=== PATIENT | male | born 1950 | race Caucasian/White ===

== ENCOUNTER 2019-05-12 04:23 | Emergency (ER) | payer OTHER ==
[2019-05-12] MEDS ORDERED: MORPHINE SULFATE 4 MG/1ML SYG ONE (05:07)
[2019-05-12] MEDS ORDERED: SODIUM CHLORIDE 0.9% 1000ML 1,000 ML IV ONE (05:07)
[2019-05-12 05:30] LABS: APPEARANCE,URINE Clear (CLEAR); BASOPHILS % (AUTO) 0.5 % (0.0-5.0); BILIRUBIN,URINE Negative (NEGATIVE); COLOR,URINE Yellow (YELLOW); EOSINOPHILS % (AUTO) 3.3 % (0.0-8.0); GLUCOSE, URINE (UA) Negative (NEGATIVE); HEMATOCRIT 44.8 % (42-54); KETONES,URINE 15 mg/dL (NEGATIVE); LEUKOCYTE ESTERASE ,URINE Negative (NEGATIVE); LYMPHOCYTES % (AUTO) 26.5 % (21.0-51.0); MEAN CORPUSCULAR HGB CONC 34.4 g/dL (32.0-36.0); MEAN CORPUSCULAR VOLUME 95.9 fL (79-99); MONOCYTES % (AUTO) 9.6 % (3.0-13.0); NEUTROPHILS % (AUTO) 60.1 % (40.0-77.0); NITRATE,URINE Negative (NEGATIVE); OCCULT BLOOD,URINE Negative (NEGATIVE); PLATELET COUNT (AUTO) 184 K/uL (130-400); PROTEIN,URINE POS 1+ mg/dL (NEGATIVE); RED BLOOD CELL COUNT(AUTO) 4.68 MIL/uL (4.50-6.20); RED CELL DISTRIBUTION WIDTH 12.7 % (11.0-15.5); WHITE BLOOD COUNT (AUTO) 7.1 K/uL (4.8-10.8)
[2019-05-12 05:37] LABS: CREATININE 0.9 mg/dL (0.5-1.5); POTASSIUM 4.5 mmol/L (3.5-5.1)
[2019-05-12 05:42] LABS: ALBUMIN 4.5 g/dL (3.5-5.0); BILIRUBIN,TOTAL 0.7 mg/dL (0.2-1.0); TOTAL PROTEIN, SERUM 7.1 g/dL (6.0-8.3)
[2019-05-12 05:44] LABS: INR 1.41 (0.85-1.15); PARTIAL THROMBOPLASTIN TIME 33.6 SEC (26.3-35.5); PROTHROMBIN TIME 14.7 SEC (9.6-11.6)
[2019-05-12 05:54] LABS: BACTERIA,URINE None Seen /HPF (None Seen); RBC,URINE None Seen /HPF (0-1); SQUAMOUS EPITHELIAL CELL,UR Rare /HPF (0-2); WBC,URINE None Seen /HPF (0-1)
[2019-05-12] MEDS ORDERED: IOHEXOL 350 MG/ML 100ML INFUS..BTL IV ONE (05:57)
== END 2019-05-12 07:06 | disposition home or self-care (01) ==
LOC: EDH 04:23
DX: S22.41XA Multiple fractures of ribs, right side, initial encounter for closed fracture (principal); E11.9 Type 2 diabetes mellitus without complications; I10 Essential (primary) hypertension; F43.10 Post-traumatic stress disorder, unspecified; Z88.0 Allergy status to penicillin; Z87.891 Personal history of nicotine dependence; W01.198A Fall on same level from slipping, tripping and stumbling with subsequent striking against other object, initial encounter; Y93.E1 Activity, personal bathing and showering; Y92.098 Other place in other non-institutional residence as the place of occurrence of the external cause; Y99.8 Other external cause status
CPT/HCPCS: 36415; 71260; 74177; 80053; 81001; 82550; 85025; 85610; 85730; 96374; 99285; J2270; J7030; Q9967

== ENCOUNTER 2019-11-02 13:36 | Emergency (ER) | payer OTHER ==
[2019-11-02] MEDS ORDERED: TETANUS/DIPHTHERIA TOXOID [ADULT] 0.5 ML VIAL IM ONE (14:54)
== END 2019-11-02 16:07 | disposition home or self-care (01) ==
LOC: EDH 13:36
DX: S81.812A Laceration without foreign body, left lower leg, initial encounter (principal); E11.9 Type 2 diabetes mellitus without complications; I10 Essential (primary) hypertension; F43.10 Post-traumatic stress disorder, unspecified; Z98.890 Other specified postprocedural states; Z87.891 Personal history of nicotine dependence; W18.39XA Other fall on same level, initial encounter; Y93.89 Activity, other specified; Y92.89 Other specified places as the place of occurrence of the external cause; Y99.8 Other external cause status; Z88.0 Allergy status to penicillin
CPT/HCPCS: 90471; 90714

== ENCOUNTER 2021-08-07 00:17 | Emergency (ER) | payer OTHER ==
[~2021-08-07] VITALS: Ht 182.9 cm; Wt 95.3 kg
[2021-08-07 02:08] VITALS: BP 153/81
== END 2021-08-07 02:19 | disposition home or self-care (01) ==
LOC: EDH 00:17
DX: S93.402A Sprain of unspecified ligament of left ankle, initial encounter (principal); I10 Essential (primary) hypertension; G20 Parkinson's disease; E11.9 Type 2 diabetes mellitus without complications; Z88.0 Allergy status to penicillin; X50.1XXA Overexertion from prolonged static or awkward postures, initial encounter; Y93.89 Activity, other specified; Y92.89 Other specified places as the place of occurrence of the external cause; Y99.8 Other external cause status
CPT/HCPCS: 29515; 73610; 73630

== ENCOUNTER → 2023-08-10 | Outpatient (CLI) | payer OTHER | END | disposition home or self-care (01) | LOC: RAH 13:13 | PROVIDERS: ATTEND Internal Medicine Cardiovascular Disease | DX: I08.0 Rheumatic disorders of both mitral and aortic valves (principal); Z95.2 Presence of prosthetic heart valve | CPT/HCPCS: 93306 ==

== ENCOUNTER → 2023-11-04 | Outpatient (CLI) | payer OTHER ==
[~2023-11-04] MED LIST: REGADENOSON 0.4 MG/5 ML PF SYG IVP SCH
== END | disposition home or self-care (01) ==
LOC: RAH 08:54
PROVIDERS: ATTEND Family Medicine
DX: R07.9 Chest pain, unspecified (principal)
CPT/HCPCS: 78452; 96374; 93017; J2785; A9500 ×2

== ENCOUNTER 2025-01-18 15:35 | Emergency (ER) | payer OTHER, MEDICARE ==
[~2025-01-18] VITALS: Ht 182.9 cm; Wt 95.3 kg
[2025-01-18 16:08] LABS: BASOPHILS # (AUTO) 0.04 K/uL (0.00-0.20); BASOPHILS % (AUTO) 0.4 % (0.0-5.0); EOSINOPHILS # (AUTO) 0.17 K/uL (0.00-0.70); EOSINOPHILS % (AUTO) 1.8 % (0.0-8.0); HEMATOCRIT 38.1 % (42-54); IMMATURE GRANULOCYTE ABSOLUTE 0.03 K/uL (0-1); LYMPHOCYTES # (AUTO) 2.7 K/uL (1.0-4.8); LYMPHOCYTES % (AUTO) 28.6 % (21.0-51.0); MEAN CORPUSCULAR HEMOGLOBIN 32.4 pg (27.0-33.0); MEAN CORPUSCULAR HGB CONC 33.9 g/dL (32.0-36.0); MEAN CORPUSCULAR VOLUME 95.7 fL (79-99); MONOCYTES # (AUTO) 0.7 K/uL (0.1-1.0); MONOCYTES % (AUTO) 7.7 % (3.0-13.0); NEUTROPHILS # (AUTO) 5.7 K/uL (1.8-7.7); NEUTROPHILS % (AUTO) 61.2 % (40.0-77.0); PLATELET COUNT (AUTO) 251 K/uL (130-400); RED BLOOD CELL COUNT(AUTO) 3.98 MIL/uL (4.50-6.20); RED CELL DISTRIBUTION WIDTH 13.1 % (11.0-15.5); WHITE BLOOD COUNT (AUTO) 9.3 K/uL (4.8-10.8)
[2025-01-18 16:13] LABS: CREATININE 1.9 mg/dL (0.5-1.3); POTASSIUM 4.8 mmol/L (3.5-5.1)
[2025-01-18 16:19] LABS: PARTIAL THROMBOPLASTIN TIME 60.3 SEC (26.3-35.5)
[2025-01-18 16:22] LABS: PROTHROMBIN TIME > 90.0 SEC (9.6-11.6)
[2025-01-18 16:23] LABS: INR > 8.00 (0.85-1.15)
[2025-01-18 16:35] VITALS: BP 105/53; PULSE 63; RESP 17; TEMP 98.2; O2SAT 96
--- NOTE | 2025-01-18 16:40 | ERN ---
General Chief Complaint: Abnormal Labs Stated Complaint: SENT BY DR COLBY FOR HIGH INR Time Seen by MD: 15:36 Time Seen by Midlevel: 15:36 Source: patient History of Present Illness Initial Comments 74-year-old [facility] results. Per Dr. Colby patient's INR obtained this morning was 10.3. Patient has not been having any active bleeding. Patient has an artificial heart valve and is therefore on warfarin. PMHx HTN, GERD, DM, CAD. Patient is denying any chest pain, difficulty breathing, abdominal pain, dark stools or further associated symptoms. Allergies: Coded Allergies: Penicillins (Unverified Allergy, Unknown, 05/12/19) Past Medical History Past Medical History: CAD, Diabetes-Type II, High Cholesterol, Heart Disease, Hypertension Medical History Other: PARKINSONS, Past Surgical History: Other Surgical History Other: HEART VALVE ROS Dictation Constitutional: Negative for fever,chills, and weight loss Eyes: Negative for injury, pain,redness, and discharge ENT: Negative for injury,pain or swelling Cardiovascular: Negative for chest pain, palpitations, and edema Respiratory: Negative for shortness of breath, cough, and wheezing, Abdomen/GI: Negative for abdominal pain, nausea, vomiting, diarrhea, and constipation Back: Negative for injury and pain : Negative for painful urination, bleeding or discharge MS/Extremity: Negative for injury and deformity Skin: Negative for rash, and discoloration Neuro: Negative for headache, weakness, numbness, tingling, and seizure Psych: Negative for suicide ideation, homicidal ideation, and hallucinations Physical Exam Physical Exam Dictation General: awake, alert, no acute distress Head/Face: Normocephalic, atraumatic Eyes: PERRL, EOMI, normal conjunctiva ENT: oral cavity clear, oral mucosa moist Neck: Supple, normal range of motion Cardiovascular: RRR, normal S1/S2 Respiratory: CTAB, no respiratory distress, no rales or wheezes Abdomen: Soft, non-tender, non-distended, no guarding or rebound. Skin: Warm, dry, normal turgor, no rash MS/Extremity: Pulses equal, no cyanosis, neurovascular intact, FROM Neuro: COAx4, GCS 15, strength 5/5, CN 2-12 intact, normal cerebellar exam, normal gait Psych: Normal behavior, mood, and affect normal Results Laboratory and Microbiology Lab and Micro Result Laboratory Tests Test 01/18/25 15:49 White Blood Count 9.3 K/uL (4.8-10.8) Red Blood Count 3.98 MIL/uL (4.50-6.20) L Hemoglobin 12.9 g/dL (14.0-18.0) L Hematocrit 38.1 % (42-54) L Mean Corpuscular Volume 95.7 fL (79-99) Mean Corpuscular Hemoglobin 32.4 pg (27.0-33.0) Mean Corpuscular Hemoglobin Concent 33.9 g/dL (32.0-36.0) Red Cell Distribution Width 13.1 % (11.0-15.5) Platelet Count 251 K/uL (130-400) Mean Platelet Volume 11.1 fL (7.5-10.5) H Immature Granulocyte % (Auto) 0.3 % (0-1) Neutrophils (%) (Auto) 61.2 % (40.0-77.0) Lymphocytes (%) (Auto) 28.6 % (21.0-51.0) Monocytes (%) (Auto) 7.7 % (3.0-13.0) Eosinophils (%) (Auto) 1.8 % (0.0-8.0) Basophils (%) (Auto) 0.4 % (0.0-5.0) Neutrophils # (Auto) 5.7 K/uL (1.8-7.7) Lymphocytes # (Auto) 2.7 K/uL (1.0-4.8) Monocytes # (Auto) 0.7 K/uL (0.1-1.0) Eosinophils # (Auto) 0.17 K/uL (0.00-0.70) Basophils # (Auto) 0.04 K/uL (0.00-0.20) Absolute Immature Granulocyte (auto 0.03 K/uL (0-1) Nucleated Red Blood Cells 0.0 % (0.0-0.19) Prothrombin Time > 90.0 SEC (9.6-11.6) *H Prothromb Time International Ratio > 8.00 (0.85-1.15) *H Activated Partial Thromboplast Time 60.3 SEC (26.3-35.5) H Sodium Level 141 mmol/L (136-145) Potassium Level 4.8 mmol/L (3.5-5.1) Chloride Level 105 mmol/L (101-111) Carbon Dioxide Level 27 mmol/L (21-32) Blood Urea Nitrogen 28 mg/dL (7-18) H Creatinine 1.9 mg/dL (0.5-1.3) H Glomerular Filtration Rate Calc 36 mL/min (>90) Random Glucose 163 mg/dL (70-105) H Total Calcium 10.0 mg/dL (8.5-10.1) Labs Reviewed?: Yes MDM MDM: Differential diagnosis: Abnormal lab results, electrolyte imbalance, anemia Rationale: 74-year-old male referred to the ED from the [facility] due to abnormal lab results. Per Dr. Colby patient's INR obtained this morning was 10.3. Patient has not been having any active bleeding. Patient has an artificial heart valve and is therefore on warfarin. PMHx HTN, GERD, DM, CAD, CKD. Patient is denying any chest pain, difficulty breathing, abdominal pain, dark stools or further associated symptoms. Per physical examination patient is in no acute distress, abdomen is soft nontender, nonlabored breathing. Labs obtained indicate elevated PT and INR 8.0. Spoke to Dr. Colby [facility] physician, who requested labs recheck. Case discussed with attending ED physician Dr. Holguin, who recommended patient discontinue warfarin for three days, and follow up outpatient for INR recheck. Patient and were educated on findings, and diagnosis. Admission was discussed with patient, patient agrees with outpatient for outpatient follow up. Return to the emergency department if any symptoms initiate. Patient and verbalized understanding. Patient stable for discharge. There are no social concerns with this patient. I independently interpreted the test that were performed, results were reviewed by me and considered findings on radiology if ordered. Medical management and examination interpretation discussions were had by me with other qualified healthcare professionals as indicated for the patient's care. ED Course Orders Procedure Category Date Status Time Cbc With Differential LAB 01/18/25 Complete 15:36 Basic Metabolic Panel LAB 01/18/25 Complete 15:36 Pt And Ptt LAB 01/18/25 Complete 15:36 Vital Signs Date Time Temp Pulse Resp B/P (MAP) Pulse Ox O2 Delivery O2 Flow Rate FiO2 01/18/25 16:35 98.2 63 17 105/53 96 Room Air* 0 21 01/18/25 15:36 98.6 69 20 129/64 97 Room Air 0 DX & DISP Disposition: Discharge Departure Impression: Primary Impression: Elevated INR Additional Impression: Mild anemia Condition: Stable Additional Instructions: Discharge home. Rest. Follow up with primary care DrHannah in 24 hours. Return to the ER for any acute changes or worsening symptoms. If any medications were prescribed take as directed. Okay to continue home medications unless otherwise discussed during your visit in the emergency room today. Patient was also advised to follow-up with primary care physician in 1 to 2 days for continued monitoring. Referrals: ROSS COLBY MD (PCP) I performed the substantive portion of the visit. I have reviewed and personally made and approve the management plan that is documented in the notes by myself or the [facility]. I acknowledge full responsibility for the patient's management plan. BEST TUCKER Jan 18, 2025 16:40
== END 2025-01-18 17:14 | disposition home or self-care (01) ==
LOC: EDH 15:35
DX: D64.9 Anemia, unspecified (principal); R79.1 Abnormal coagulation profile; E11.9 Type 2 diabetes mellitus without complications; E78.00 Pure hypercholesterolemia, unspecified; G20.A1 Parkinson's disease without dyskinesia, without mention of fluctuations; I11.9 Hypertensive heart disease without heart failure; I25.10 Atherosclerotic heart disease of native coronary artery without angina pectoris; Z79.01 Long term (current) use of anticoagulants; Z88.0 Allergy status to penicillin; Z95.2 Presence of prosthetic heart valve
CPT/HCPCS: 36415; 80048; 85025; 85610; 85730; 99283

== ENCOUNTER 2025-07-12 04:39 | Emergency (ER) | payer MEDICARE, OTHER ==
[~2025-07-12] VITALS: Ht 182.9 cm; Wt 99.8 kg
[2025-07-12 04:44] VITALS: TEMP 97.6
[2025-07-12 04:52] VITALS: BP 176/86; O2SAT 97
--- NOTE | 2025-07-12 04:52 | ERN ---
ED Note History of Present Illness Stated Complaint: SOB Chief Complaint: Shortness of Breath Time Seen by MD: 04:43 Dictation: This is a 74-year-old male who presented to the emergency room complaining of worsening shortness of breath. When he woke up from sleep last night. He sta grey that he has had sinus congestion for the past week or so draining with a severe postnasal drip and chest congestion and he could not breathe. Also reports sputum which is discolored. Was unable to clarify the color of the sputum. No history of any hemoptysis no recent travel no new pets at home. No other sick contacts. No nausea vomitings diarrhea hematemesis or melena. He also reports precordial chest pain all across the precordium. He has cough. Last night he ate hot dogs. And he also had a couple of glasses of wine. Temperature 97.6 pulse 107 respirations 20 blood pressure 182/85 with a pulse oximetry of 91% on room air His other chronic medical problems include diabetes mellitus, hypertension, gastroesophageal reflux disease, coronary artery disease, aortic valve replacement on warfarin( in 2005 or 2006) and Parkinson's disease-not on any me dications(diagnosed about a year ago) His last echocardiogram in 2023 showed an ejection fraction of 50-55%. Primary care physician-Dr. Colby Allergies: Coded Allergies: Penicillins (Unverified Allergy, Unknown, 05/12/19) Home Meds Active Scripts Ipratropium/Albuterol Sulfate (Combivent Respimat Inhal Hitchita) 20 Mcg-100 Mcg/Actuation Aer.w.adap, 2 PUFF IH TID, #4 GM 0 Refills Prov:CONCETTA ADAMS MD 07/12/25 Levofloxacin (Levofloxacin) 750 Mg Tablet, 1 TAB PO DAILY for 7 Days, #7 TAB 0 Refills Prov:CONCETTA ADAMS MD 07/12/25 Prednisone (Prednisone) 20 Mg Tablet, 1 TAB PO BID for 5 Days, #10 TAB 0 Refills Prov:CONCETTA ADAMS MD 07/12/25 Past Medical History Past Medical History: CAD, Diabetes-Type II, GERD, High Cholesterol, Hypertension Additional Past Medical Hx: PARKINSONS, Surgical History: Other Surgical History Other: AORTIC VALVE REPLACEMENT Family History: Negative Social History: Smokers (Tobacco abuse in remission), ETOH RN Note Reviewed/Agreed w/PFSH: Yes Review of System Dictation Constitutional: Negative for fever,chills, and weight loss Eyes: Negative for injury, pain,redness, and discharge ENT: Negative for injury,pain or swelling Cardiovascular: Positive for chest pain, palpitations, and edema Respiratory: Positive for shortness of breath, cough, and wheezing, Abdomen/GI: Negative for abdominal pain, nausea, vomiting, diarrhea, and constipation Back: Negative for injury and pain : Negative for injury, bleeding and discharge MS/Extremity: Negative for injury and deformity Skin: Negative for rash, and discoloration Neuro: Negative for headache, weakness, numbness, tingling, and seizure Psych: Negative for suicide ideation, homicidal ideation, and hallucinations Initial Vital Sign VS Vital Signs Date Time Temp Pulse Resp B/P (MAP) Pulse Ox O2 Delivery O2 Flow Rate FiO2 07/12/25 04:44 97.5 107 18 182/85 91 Room Air 0 07/12/25 04:52 32 Physical Exam Dictation General: awake, alert, NAD masked facies of Parkinson's Head/Face: Normocephalic, atraumatic Eyes: PERRL, EOMI, vision at baseline ENT: oral cavity clear, TMs clear, no signs of infection Neck: Trachea midline, supple, no nuchal rigidity Cardiovascular: RRR, normal S1/S2, grade 3/6 ejection systolic murmur right upper sternal border and throughout the precordium., no JVD Respiratory decreased breath sounds bilaterally with prolonged expiratory phase and diffuse end expiratory wheezing to auscultation. Abdomen: Soft, non-tender, non-distended, normal bowel sounds, no guarding or rebound. Skin: Warm, dry, normal turgor, no rash MS/Extremity: Pulses equal, no cyanosis, neurovascular intact, FROM very mild intentional tremor Neuro: COAx4, GCS 15, strength 5/5, CN 2-12 intact, normal cerebellar exam, normal gait, Psych: Normal behavior, mood, and affect normal Extremities-trace edema without any palpable cords, Homans sign is negative Results (Laboratory/Radiology) Laboratory/Radiology Laboratory Tests Test 07/12/25 04:42 07/12/25 04:45 07/12/25 05:27 Influenza Type A Antigen Negative For Type A Influenza Type B Antigen Negative For Type B SARS-CoV-2, RNA, NAAT NEGATIVE SARS CoV-2 Group A Streptococcus Rapid negative (NEGATIVE) White Blood Count 8.2 K/uL (4.8-10.8) Red Blood Count 4.70 MIL/uL (4.50-6.20) Hemoglobin 15.0 g/dL (14.0-18.0) Hematocrit 43.9 % (42-54) Mean Corpuscular Volume 93.4 fL (79-99) Mean Corpuscular Hemoglobin 31.9 pg (27.0-33.0) Mean Corpuscular Hemoglobin Concent 34.2 g/dL (32.0-36.0) Red Cell Distribution Width 13.6 % (11.0-15.5) Platelet Count 186 K/uL (130-400) Mean Platelet Volume 10.7 fL (7.5-10.5) H Immature Granulocyte % (Auto) 0.4 % (0-1) Neutrophils (%) (Auto) 69.4 % (40.0-77.0) Lymphocytes (%) (Auto) 19.6 % (21.0-51.0) L Monocytes (%) (Auto) 7.8 % (3.0-13.0) Eosinophils (%) (Auto) 2.2 % (0.0-8.0) Basophils (%) (Auto) 0.6 % (0.0-5.0) Neutrophils # (Auto) 5.7 K/uL (1.8-7.7) Lymphocytes # (Auto) 1.6 K/uL (1.0-4.8) Monocytes # (Auto) 0.6 K/uL (0.1-1.0) Eosinophils # (Auto) 0.18 K/uL (0.00-0.70) Basophils # (Auto) 0.05 K/uL (0.00-0.20) Absolute Immature Granulocyte (auto 0.03 K/uL (0-1) Nucleated Red Blood Cells 0.0 % (0.0-0.19) Sodium Level 141 mmol/L (136-145) Potassium Level 4.3 mmol/L (3.5-5.1) Chloride Level 102 mmol/L (101-111) Carbon Dioxide Level 27 mmol/L (21-32) Blood Urea Nitrogen 16 mg/dL (7-18) Creatinine 1.1 mg/dL (0.5-1.3) Glomerular Filtration Rate Calc 70 mL/min (>90) Random Glucose 198 mg/dL (70-105) H Total Calcium 10.3 mg/dL (8.5-10.1) H Magnesium Level 1.60 mg/dL (1.80-2.40) L Troponin I High Sensitivity 28 ng/L (4-75) B-Type Natriuretic Peptide 212 pg/mL (0-100) H Blood Gas Specimen Type Arterial Arterial Blood pH 7.388 (7.350-7.450) Arterial Blood Partial Pressure CO2 39 mmHg (35-48) Arterial Blood Partial Pressure O2 109.1 mmHg (83.0-108.0) H Arterial Blood HCO3 22.9 mmol/L (21.0-28.0) Arterial Blood Oxygen Saturation 97.7 % (94.0-98.0) Arterial Blood Base Excess -1.8 mmol/L (-2.0-3.0) Hemoglobin (Blood Gas) 14.7 g/dL (13.5-17.5) Sodium (Blood Gas) 139 MMOL/L (136-145) Bedside Potassium (Blood Gas) 4.5 MMOL/L (3.4-4.5) Bedside Chloride (Blood Gas) 104 MMOL/L (98-107) Bedside Glucose (Blood Gas) 169 MG/DL (65-95) H Bedside Ionized Calcium (Blood Gas) 1.31 MMOL/L (1.15-1.33) Bedside Lactic Acid (Blood Gas) 1.33 MMOL/L (0.36-0.75) H Blood Gas Temperature 37.0 CELSIUS (35.5-37.0) Blood Gas Flow-by 2.50 L/min (0.00-15.00) Blood Gas Vent Mode NC (ROOM AIR) FiO2 30.0 % Blood Gas Specimen Comment RB Labs Reviewed?: Yes EKG Comment: Twelve lead EKG done on 07/12/2025 at 4:38 a.m. showed a heart rate of 100, [place] interval 186, QRS duration 159, QT/QTC 380/491 Impression sinus tachycardia with intraventricular conduction delay left bundle branch block T-waves appear peaked likely due to intraventricular conduction delay. EKG rhythm strip shows normal sinus rhythm with IVCD nonspecific ST-T changes. Interpreted by ER MD Dr. Thopu ED Course ED Course Orders Procedure Category Date Status Time Cbc With Differential LAB 07/12/25 Complete 04:41 Basic Metabolic Panel LAB 07/12/25 Complete 04:41 B-Type Natriuretic LAB 07/12/25 Complete Peptide 04:41 Troponin I High LAB 07/12/25 Complete Sensitivity 04:41 12 Lead Ekg Tracing- EKG 07/12/25 Complete Technical 04:41 Chest 1vw RAD 07/12/25 Resulted 04:41 Magnesium LAB 07/12/25 Complete 04:41 Influenza Type A & B, LAB 07/12/25 Complete Rapid 04:44 Rapid (Group A Strep) LAB 07/12/25 Complete 04:44 Covid Rna Naat LAB 07/12/25 Complete 04:44 Methylprednisolone PHA 07/12/25 Complete Succ 125mg (Solu-Medr 05:00 Albuterol 0.083% PHA 07/12/25 Complete 2.5mg/3ml (Proventil 05:00 Arterial Blood Gas RT 07/12/25 Transmitted 05:09 Arterial Blood Gas LAB 07/12/25 Complete Arterial + 05:27 Levofloxacin 750 PHA 07/12/25 Complete Mg/D5w 150 Ml 06:00 Current Medications Medications (Trade) Dose Ordered Sig/Olvin Route PRN Reason Start Time Stop Time Status Last Admin Dose Admin Albuterol Sulfate (Proventil 0.083% 2.5mg/3ml) 2.5MG ONCE ONCE IH 07/12/25 05:00 07/12/25 05:05 DC 07/12/25 05:26 Levofloxacin/ Dextrose (LEvaquIN 750 MG/ D5W 150 ML) 750 mg ONCE ONCE IV 07/12/25 06:00 07/12/25 06:02 DC 07/12/25 05:48 Methylprednisolone Sodium Succinate (Solu-medROL 125MG) 60 mg ONCE ONCE IVP 07/12/25 05:00 07/12/25 05:05 DC 07/12/25 05:08 Vital Signs Date Time Temp Pulse Resp B/P (MAP) Pulse Ox O2 Delivery O2 Flow Rate FiO2 07/12/25 05:28 95 20 Nasal Cannula 2.0 28 07/12/25 05:26 93 20 07/12/25 04:52 96 18 176/86 97 Nasal Cannula* 3 32 07/12/25 04:44 97.5 107 18 182/85 91 Room Air 0 We will perform diagnostic labs, advanced imaging and administer medications according to the patient's complaint. Once the results are available, will review and personally interpreted the labs to rule out any acute life- threatening emergency the trach require immediate intervention and treatment. I will then re-evaluate the patient after treatment and diagnostic exams have return to determine whether the patient requires any further testing, can safely be discharged home or need further admission to hospital for additional treatment and evaluation. Patient will be discharged to home on a short course of steroid, empiric antibiotic as well as inhaler. Instructed to return to the emergency room should his symptoms get worse HEART Score Response (Comments) Value History: Low suspicion (0) 0 EKG: Normal 0 Age: > 65yrs (+2) 2 Risk Factors: 1-2 risk factors (+1) 1 Initial Troponin: Normal limit (0) 0 HEART Score Risk: Low Risk for MACE (1-3) Total 3 Medical Decision Making MDM Differential diagnosis: Chronic sinusitis, reactive airway disease due to chronic postnasal drip, my chronic microaspiration due to Parkinson's or silent reflux Rationale: Tests considered and ordered secondary to shared decision making include: Previous outside records reviewed: Old ER visits. Risk of complication and/or morbidity or mortality of patient management: None Medications-Per medication reconciliation Need for hospitalization: Patient does not meet criteria for hospitalization. Need for emergency major/minor surgery: No There are no social concerns with this patient. Prescription drug management Prescriptions will include symptomatic care Patient's prior external medical records from other ER visits were reviewed by me as indicated. Prior testing and results from previous visits were reviewed. Prior tests were taken into account with medical decision making and resource utilization, independent historian/historians were used to obtain complete medical history. I independently interpreted the test that were performed, results were reviewed by me and considered findings on radiology if ordered. Medical management and examination interpretation discussions were had by me with other qualified healthcare professionals as indicated for the patient's care. Problem List Problem List: (1) Pneumonitis (2) COPD with acute exacerbation (3) Parkinsons disease (4) Current use of emt intermediate anticoagulation DX & DISP Disposition: Discharge Departure Impression: Primary Impression: Pneumonitis Additional Impressions: COPD with acute exacerbation, Parkinsons disease, Current use of emt intermediate anticoagulation, H/O mechanical aortic valve replacement Condition: Stable Scripts Ipratropium/Albuterol Sulfate (Combivent Respimat Inhal Hitchita) 20 Mcg-100 Mcg/Actuation Aer.w.adap 2 PUFF IH TID, #4 GM 0 Refills Prov: CONCETTA ADAMS MD 07/12/25 Levofloxacin (Levofloxacin) 750 Mg Tablet 1 TAB PO DAILY for 7 Days, #7 TAB 0 Refills Prov: CONCETTA ADAMS MD 07/12/25 Prednisone (Prednisone) 20 Mg Tablet 1 TAB PO BID for 5 Days, #10 TAB 0 Refills Prov: CONCETTA ADAMS MD 07/12/25 Additional Instructions: Patient and the caregiver have been informed of all the diagnostic tests and the imaging conducted during the today's visit to the emergency room and has verbalized understanding of the results I have personally reviewed and interpreted all diagnostic exams performed here in the ER today as well as the vital signs documented by the nursing staff. The patient is now being discharged to home and should follow up with the primary care physician or the specialist as directed by the ER staff. Follow-up with primary care provider in 1 to 2 days. Take medications as directed here in the emergency room. Okay to continue home medications unless otherwise discussed during your visit in the emergency room today. Return to your nearest emergency room if symptoms worsen or if there is no improvement. Call 911 if you need immediate assistance. Take Tylenol or Motrin [id number] as needed and if no contraindications are present. Increase oral hydration. A wound culture or urine culture was ordered here in the em ergency room department please follow-up with primary care provider and advise them to get repeat ports from our facility. If you had any Tima wrap/splints that were applied here, please do not remove them until you see your primary care or specialty. Due to chronic microaspiration with Parkinson's, previous history of smoking with clinical COPD, patient would benefit from nebulizer and bronchodilator treatments as needed. Referrals: ROSS COLBY MD (PCP) CONCETTA ADAMS MD Jul 12, 2025 04:52
[2025-07-12 04:53] LABS: IMMATURE GRANULOCYTE ABSOLUTE 0.03 K/uL (0-1); NUCLEATED RED BLOOD CELLS 0.0 % (0.0-0.19); PLATELET COUNT (AUTO) 186 K/uL (130-400); RED BLOOD CELL COUNT(AUTO) 4.70 MIL/uL (4.50-6.20); RED CELL DISTRIBUTION WIDTH 13.6 % (11.0-15.5); WHITE BLOOD COUNT (AUTO) 8.2 K/uL (4.8-10.8)
[2025-07-12 05:04] LABS: CREATININE 1.1 mg/dL (0.5-1.3); GLOMERULAR FILTR. RATE CALC 70.0 mL/min (>90); GLUCOSE,RANDOM 198.0 mg/dL (70-105); SODIUM SERUM 141.0 mmol/L (136-145); UREA NITROGEN, BLOOD 16.0 mg/dL (7-18)
[2025-07-12 05:09] LABS: RAPID GROUP A STREP negative (NEGATIVE)
[2025-07-12 05:16] LABS: SARS-CoV-2, RNA, NAAT NEGATIVE SARS CoV-2 (NEGATIVE)
[2025-07-12 05:19] LABS: INFLUENZA TYPE A Negative For Type A (NEGATIVE); INFLUENZA TYPE B Negative For Type B (NEGATIVE)
[2025-07-12 05:26] VITALS: PULSE 93; RESP 20
[2025-07-12] MEDS: ALBUTEROL 0.083% 2.5 MG/3 ML INH IH ONE (05:26)
[2025-07-12 05:28] VITALS: PULSE 95; RESP 20; O2SAT 97
[2025-07-12 05:28] LABS: ABG BASE EXCESS -1.8 mmol/L (-2.0-3.0); ABG HCO3 22.9 mmol/L (21.0-28.0); ABG OXYGEN SATURATION 97.7 % (94.0-98.0); ABG PCO2 39 mmHg (35-48); ABG PH 7.388 (7.350-7.450); CARBON MONOXIDE 0.8 % (0.5-1.5); PO2, ARTERIAL BG 109.1 mmHg (83.0-108.0); TEMPERATURE, CELSIUS BG 37.0 CELSIUS (35.5-37.0); VENT MODE, BG NC (ROOM AIR)
[2025-07-12] MEDS ORDERED: LEVO750T90 PO (05:50)
[2025-07-12] MEDS ORDERED: PRED20TA3 PO (05:50)
[2025-07-12] MEDS ORDERED: IPRA4AER IH (05:50)
--- NOTE | 2025-07-12 06:10 | EKG ---
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
--- NOTE | 2025-07-12 06:14 | HMCIMG ---
EXAM: CR Chest, 1 view CLINICAL HISTORY: Shortness of breath. COMPARISON: None provided. FINDINGS: Borderline cardiac size. Status poststernotomy. Mild pulmonary vascular congestion, questionable mild interstitial edema, and lower zone airspace disease bilaterally. No large pleural effusion or pneumothorax. No acute osseous abnormality. IMPRESSION: Borderline cardiac size. Status poststernotomy. Mild pulmonary vascular congestion, questionable mild interstitial edema, and lower zone airspace disease bilaterally. Overall, there is an interval worsening compared to the previous examination. /[place]
== END 2025-07-12 07:16 | disposition home or self-care (01) ==
LOC: EDH 04:39
DX: J18.9 Pneumonia, unspecified organism (principal); J44.1 Chronic obstructive pulmonary disease with (acute) exacerbation; G20.A1 Parkinson's disease without dyskinesia, without mention of fluctuations; E78.00 Pure hypercholesterolemia, unspecified; E11.9 Type 2 diabetes mellitus without complications; I10 Essential (primary) hypertension; K21.9 Gastro-esophageal reflux disease without esophagitis; I25.10 Atherosclerotic heart disease of native coronary artery without angina pectoris; F17.200 Nicotine dependence, unspecified, uncomplicated; Z88.0 Allergy status to penicillin; Z95.2 Presence of prosthetic heart valve; Z79.01 Long term (current) use of anticoagulants; Z79.52 Long term (current) use of systemic steroids; Z20.822 Contact with and (suspected) exposure to COVID-19
CPT/HCPCS: 99285; 96374; 71045; 87635; 96375; 82947; 82435; 83735; 84484; 84132; 84295; 80048; 82803; 83880; 85025; 85018; 87880; 87804 ×2; 83605; 36415; 93005; 36600; 94640; J2919; J1956